=== PATIENT | male | born 1965 | race Caucasian/White ===

== ENCOUNTER 2017-09-19 00:18 | Emergency (ER) | payer MEDICARE ==
[~2017-09-19] VITALS: Ht 180.3 cm; Wt 108.0 kg
[~2017-09-19 00:18] MED LIST: BENZ0.5T35 PO; CIPR500T3 PO; CLON-365 PO; DULO60CA7 PO; HYDR1TAB12 PO; HYDR25CA94 PO; LINE600T37 PO; METR500T PO; ONDA4TAB7 PO; OXYC-302 PO; OXYC1TAB7 PO; PROM25SU34 PO; PROM25TA10 PO; QUET100T PO; TRAM-47 PO
[2017-09-19] MEDS ORDERED: CLON0.5T PO (00:42)
[2017-09-19] MEDS ORDERED: DIPHENHYDRAMINE 50 MG/ML, 1ML IVPush ONE (01:00)
[2017-09-19] MEDS ORDERED: BENZTROPINE 1 MG TABLET PO ONE (01:00)
[2017-09-19] MEDS ORDERED: LORazepam 2 MG/ML, 1ML IVPush ONE (01:00)
[2017-09-19 01:04] LABS: BASOPHILS % (AUTO) 2 % (0-1); EOSINOPHILS # (AUTO) 0.12 x10^3/uL (0-0.4); EOSINOPHILS % (AUTO) 2 % (1-7); LYMPHOCYTES # (AUTO) 1.58 x10^3/uL (1-3.4); LYMPHOCYTES % (AUTO) 24 % (22-44); MD NO; MEAN CORPUSCULAR HEMOGLOBIN 29.7 pg (27.5-34.5); MEAN CORPUSCULAR HGB CONC 33.4 g/dL (33.2-36.2); MEAN CORPUSCULAR VOLUME 89.1 fL (81-97); MEAN PLATELET VOLUME 9.9 fL (7.4-10.4); MONOCYTES # (AUTO) 0.66 x10^3/uL (0.2-0.8); MONOCYTES % (AUTO) 10 % (2-9); NEUTROPHILS # (AUTO) 4.15 x10^3/uL (1.8-6.8); NEUTROPHILS % (AUTO) 63 % (42-75); PLATELET COUNT 138 x10^3/uL (130-400); RED BLOOD COUNT 5.22 x10^6/uL (4.38-5.82)
[2017-09-19] MEDS ORDERED: DIPHENHYDRAMINE 50 MG/ML, 1ML ONE (01:07)
[2017-09-19] MEDS ORDERED: LORazepam 2 MG/ML, 1ML ONE (01:08)
[2017-09-19 01:15] LABS: ALANINE AMINOTRANSFERASE 70 U/L (12-78); ALBUMIN 3.8 g/dL (3.4-5.0); ANION GAP 6 mmol/L (5-15); CHLORIDE 107 mmol/L (98-107); CREATININE 1.15 mg/dL (0.7-1.3)
[2017-09-19 01:18] LABS: ALKALINE PHOSPHATASE 56 U/L (45-117); BILIRUBIN,TOTAL 0.3 mg/dL (0.2-1.0)
[2017-09-19] MEDS ORDERED: BENZTROPINE 1 MG TABLET ONE (01:20)
[2017-09-19 02:39] VITALS: BP 132/94
== END 2017-09-19 02:46 | disposition home or self-care (01) ==
LOC: ED 01:27
DX: M62.838 Other muscle spasm (principal); R79.89 Other specified abnormal findings of blood chemistry
CPT/HCPCS: 36415; 80053; 85025; 93005; 96374; 96375; 99285; J1200; J2060